=== PATIENT | female | born 1995 | race Hispanic/Latino ===

== ENCOUNTER 2025-02-22 21:33 | Emergency (ER) | payer MEDICAID | END 2025-02-23 00:03 | disposition home or self-care (01) | LOC: ERS 21:33 | DX: T78.40XA Allergy, unspecified, initial encounter (principal); L50.9 Urticaria, unspecified | CPT/HCPCS: 99283 ==

== ENCOUNTER 2025-06-03 17:23 | Emergency (ER) | payer MEDICAID, SELFPAY ==
[2025-06-03 17:48] LABS: Bacteria/HPF None Seen HPF (None Seen); CAUTI Indications for Culture Dysuria,urgency,freq; Glucose, Urine (Dipstick) Normal (Negative); Leukocyte 25 Leu/uL (Negative); Pregnancy Test - Urine (BHCG) Negative (Negative); Pregu Control Background? CLEAR/WHITE (CLR/WHITE); Pregu Control Bar Appear? YES (CONTROL BAR); Protein, Urine (Dipstick) Negative (Neg-Trace); RBC/HPF 0-3 HPF (0-3); Specific Gravity, Urine 1.021 (1.002-1.036); WBC/HPF 0-3 HPF (0-3)
[2025-06-03 17:49] LABS: Urine Culture Reflex No No
[2025-06-03 18:09] LABS: #Basophils 0.03 10x3/uL (0.0-0.2); #Eosinophils 0.12 10x3/uL (0.0-0.7); #Monocytes 0.35 10x3/uL (0.11-0.59); #Neutrophils 5.38 10x3/uL (1.40-6.50); %Basophils 0.4 % (0.0-1.0); %Eosinophils 1.6 % (0.0-10.0); %Lymphocytes 21.3 % (21.0-51.0); %Monocytes 4.7 % (0.0-10.0); %Neutrophils 71.7 % (42.0-75.0); Hematocrit 44.2 % (36.0-47.0); Hemoglobin 14.6 g/dL (12.0-16.0); Mean Corpuscular Hemoglobin 29.9 pg (27.0-31.0); Mean Corpuscular Volume 90.6 fL (78.0-98.0); Platelet Count 237 10x3/uL (130-400); Red Blood Cell (RBC) Count 4.88 mill/uL (4.20-5.40); White Blood Cell (WBC) Count 7.50 10x3/uL (4.8-10.8)
[2025-06-03 18:35] LABS: ALT (SGPT) 27 U/L (Less than 34); AST (SGOT) 27 U/L (11-34); Albumin 4.4 g/dL (3.1-4.5); Alkaline Phosphatase 98 U/L (40-110); Anion Gap 12 mmol/L (10-20); BUN (Urea Nitrogen) 10 mg/dL (7.0-18.7); Bilirubin, Total 0.6 mg/dL (0.3-1.2); Calc. Creatinine Clearance 0 mL/min (70-130); Calcium 9.6 mg/dL (7.8-10.44); Carbon Dioxide 23 mmol/L (22-29); Chloride 105 mmol/L (98-107); Globulin 3.9 g/dL (2.4-3.5); Glucose 111 mg/dL (70-105); Lipase 13 U/L (8-78); Potassium 4.2 mmol/L (3.5-5.1); Sodium 136 mmol/L (136-145)
[2025-06-03] MEDS ORDERED: Metoclopramide HCl 10 MG (2 mL) VIAL ONE (20:23)
[2025-06-03] MEDS ORDERED: diphenhydrAMINE 50 MG/ML VIAL ONE (20:27)
[2025-06-03] MEDS ORDERED: Acetaminophen 500 MG TAB ONE (20:44)
[2025-06-03] MEDS ORDERED: Ketorolac Tromethamine 30 MG (1 mL) VIAL ONE (20:45)
== END 2025-06-03 22:06 | disposition home or self-care (01) ==
LOC: ERS 17:23
DX: R51.9 Headache, unspecified (principal); R11.2 Nausea with vomiting, unspecified; R29.700 NIHSS score 0
CPT/HCPCS: 36415; 70450; 80053; 81001; 81025; 83690; 85025; 87428; 93005; 96365; 96375; J1200; J1885; J2765